=== PATIENT | male | born 1990 | race Caucasian/White ===

== ENCOUNTER 2017-01-04 18:12 | Emergency (ER) | payer BC ==
[2017-01-04 19:06] VITALS: RESP 16; TEMP 97.5
--- NOTE | 2017-01-04 19:19 | PDOC ---
Neuro Symptoms / Deficit HPI - General Chief Complaint: Neurological Complaints Stated Complaint: HEADACHE WITH NEURO CHANGES Date Seen by Provider: 01/04/17 Time Seen by Provider: 18:50 - History of Present Illness Initial Comments: Patient is a very nice 26-year-old gentleman who was out for around earlier this morning when he finishes runny and some pain in the base of his neck and felt that there was a headache coming on. His headache worsened through the day and then eventually in the early to mid afternoon he started to have some fogginess as well as scotoma and nausea and some classic symptoms consistent with migraine headache. He did not use any Tylenol or ibuprofen or any treatment for these and eventually they went away. He discussed his symptoms with his significant other and decided to come to the emergency department for evaluation. By the time he gets here to the emergency department he has no further visual changes his headache is being rated at a 1 and he denies any neurologic issues or deficits currently. He was nauseated is no longer having any nausea he's had no fever or chills. He has had history of a couple of significant concussions it required him to be evaluated in the hospital and did see a neurologist for those at one point. These were remote. His blood pressure was noted to be significantly elevated upon coming into the ed. - Patient Home Medications Home Medications: Home Medications Amlodipine Besylate [Norvasc] 5 mg PO DAILY #20 tab 01/04/17 - Patient Allergies Allergies/Adverse Reactions: Allergies Allergy/AdvReac Type Severity Reaction Status Date / Time No Known Allergies Allergy Verified 01/04/17 18:45 Past Medical History - heen HEENT History: Denies History Cardiovascular History: Other (please comment) Additional Cardiovasular History: Pt reports he was told he had high BP when donating plasma but has not seen a physician for follow up. Respiratory History: Denies History Gastrointestinal History: GERD Genitourinary History: Denies History Endocrine History: Denies History Musculoskeletal History: Denies History Prosthesis or Implant: No Neurological History: Other (please comment) Additional Neurological History: multiple concussions Blood Disorders: Denies History Psychiatric History: Denies History Cancer History: Denies History In Past Year Been Physically Harmed or Verbally Threatened: No History of MDRO: No Tobacco Use: Never Smoker Alcohol Use: Occasionally Substance Use Type: None Previous Surgical History: No Significant Family History: Hypertension Past Medical History Reviewed: Reviewed - No Changes ROS - Limitations ROS Limitations: No Limitations Constitution: REPORTS: Denies Symptoms. DENIES: Chills, Fever Cardiovascular: REPORTS: Denies Cardiac Symptoms Respiratory: REPORTS: Denies Resp Symptoms Musculoskeletal: REPORTS: Denies MS Symptoms Neuro Symptoms / Deficit Exam - General Appearance General Appearance: POSITIVE: No Acute Distress, Alert - HEENT HEENT: POSITIVE: Head Inspection Nml, Eyes Inspection Nml, Ears Inspection Nml, Nose Inspection Nml - Neuro / Psych Higher Functions: POSITIVE: Oriented to Person, Oriented to Place, Oriented to Time, Normal Speech, Normal Cognition, Appropriate Mood, Appropriate Affect Cranial Nerves: POSITIVE: Normal As Tested Cerebellar: POSITIVE: Normal As Tested Peripheral Exam: POSITIVE: Sensation Normal, Motor Normal, Reflexes Normal - Neck Neck: POSITIVE: Supple. NEGATIVE: Meningismus - Respiratory Respiratory: POSITIVE: No Respiratory Distress, Breath Sounds Normal - Cardiovascular Cardiovascular: POSITIVE: Regular Rate & Rhythm, Heart Sounds Normal - Abdomen Abdomen: Soft: (All Quadrants), Normal Bowel Sounds: (All Quadrants), Denies Tenderness: (All Quadrants) Neuro Symptom/Deficit Progress - Patient's Progress MDM / ED Course: This patient had a classic migraine headache. It started with a tension headache in his neck and then progress to a migrainous comment on. He had scotoma bilaterally in his vision he also had nausea and a feeling of fogginess. He had some aura prior to the headache as well. He did not have any tonic-clonic activity or any loss of continence or anything that would suggest seizure. He also has had almost complete resolution of his symptoms which would speak against any sort of meningitis or CVA. Ultimately I have asked him to manage these conservatively in the future and if he has increased concerns frequency or any other issues to not hesitate to return for evaluation. He did have elevated blood pressure coming in which did improve while he was here but apparently has been told multiple times in the past that he has some elevated blood pressure. I gave him a one-time dose of amlodipine and encouraged him to follow-up with a primary care provider to discuss his blood pressure issues. Patient Care Time - Estimated PCT Patient Care Time (In Minutes): 25 Vital Signs - Recent Vital Signs Vital Signs: Vital Signs (Last 8 hours) Temp Pulse Resp BP BP Pulse Ox 01/04/17 18:59 134/90 01/04/17 18:15 97.5 F 72 16 159/113 178/115 96 - VS Reviewed Vital Signs Reviewed: Yes Discharge Clinical Impression: Migraine Qualifiers: Migraine type: with aura Status migrainosus presence: without status migrainosus Intractability: not intractable Qualifier Code: (G43.109) Migraine with aura, not intractable, without status migrainosus Hypertension Qualifiers: Hypertension type: essential hypertension Qualifier Code: (I10) Essential ( primary) hypertension Condition: Good Patient Instructions Given at Discharge: Migraine Headache (ED), Acute Headache (ED) Additional Instructions: Monitor your symptoms and if you have worsening symptoms do not hesitate to return to the emergency department. Follow-up with a primary care provider to discuss your headache today and to discuss your blood pressure and your health in general Use [id number] ibuprofen and Tylenol for headaches when they occur. If your headaches do not respond to those medications or if they are worsening do not hesitate to be evaluated in the urgent care or emergency department or your primary care provider's office Follow Up With: NONE,NONE [Primary Care Provider] -
[2017-01-04] MEDS ORDERED: AmLODIPine Tab 5 MG TABLET PO ONE (19:21)
== END 2017-01-04 19:34 | disposition home or self-care (01) ==
LOC: ER 18:12
DX: G43.109 Migraine with aura, not intractable, without status migrainosus (principal); M54.2 Cervicalgia; I10 Essential (primary) hypertension
CPT/HCPCS: 99282